=== PATIENT | female | born 1975 | race Caucasian/White ===

== ENCOUNTER 2021-05-21 14:51 | Emergency (ER) | payer MEDICAID, OTHER ==
[~2021-05-21] VITALS: Ht 165.1 cm; Wt 83.9 kg
[2021-05-21 15:02] VITALS: BP 106/64
[2021-05-21] MEDS ORDERED: KETOROLAC TROMETHAMINE INJ 60 MG/2 ML VIAL IM ONE (16:00)
--- NOTE | 2021-05-21 17:19 | NUR ---
US TECH AT THE BEDSIDE
[2021-05-21] MEDS ORDERED: CEPH500T PO (17:42)
[2021-05-21] MEDS ORDERED: SULF1TAB48 PO (17:42)
[2021-05-21] MEDS ORDERED: KETOROLAC TROMETHAMINE INJ 30 MG/ML VIAL ONE (17:53)
--- NOTE | 2021-05-21 17:59 | NUR ---
Pt medication (toradol) was delayed due to waiting for hcg urine test.
== END 2021-05-21 18:12 | disposition home or self-care (01) ==
LOC: ER 14:54
DX: L03.116 Cellulitis of left lower limb (principal); F10.10 Alcohol abuse, uncomplicated; Y90.9 Presence of alcohol in blood, level not specified; Z98.890 Other specified postprocedural states; Z79.899 Other long term (current) drug therapy
CPT/HCPCS: 73590; 84703; 93971; 96372; 99285; J1885